=== PATIENT | male | born 1955 | race Caucasian/White ===

== ENCOUNTER 2016-09-04 04:25 | Day surgery (SDC) | payer BC ==
[2016-08-27 11:35] LABS: BASOPHILS 0.3 %; BASOPHILS ABSOLUTE 0.03 10/3/uL (0.0-0.16); EOSINOPHILS 4.1 %; EOSINOPHILS ABSOLUTE 0.35 10/3/uL (0.0-0.53); HEMOGLOBIN 13.1 g/dL (13.6-17.8); IMMATURE GRANULOCYTES 1.4 %; IMMATURE GRANULOCYTES ABSOLUTE 0.12 10/3/uL (0.0-0.11); LYMPHOCYTES 23.7 %; LYMPHOCYTES ABSOLUTE 2.04 10/3/uL (0.67-4.30); MEAN CORPUS HGB CONC 33.9 g/dL (32.0-36.0); MEAN CORPUSCULAR HEMOGLOB 31.9 pg (26.0-34.0); MEAN CORPUSCULAR VOLUME 94.2 fL (80-100); MEAN PLATELET VOLUME 8.3 fL (9.2-13.0); MONOCYTES 4.7 %; NEUTROPHILS 65.8 %; NEUTROPHILS ABSOLUTE 5.66 10/3/uL (2.02-8.40); PLATELET COUNT 334 10/3/uL (150-400); RBC DISTRIBUTION WIDTH 15.1 % (12.0-16.0); RED CELL COUNT 4.11 10/6/uL (4.7-6.1); WHITE BLOOD CELLS 8.6 10/3/uL (4.5-10.5)
[2016-08-27 11:36] LABS: HEMATOCRIT 38.7 % (40.0-51.0); MANUAL DIFF NO %
[2016-08-27 11:53] LABS: ALKALINE PHOSPHATASE 81 U/L (45-117); CALCIUM, SERUM 9.4 MG/DL (8.5-10.4); CHLORIDE, SERUM 103 MMOL/L (96-112); CO2 (CARBON DIOXIDE) 25 MMOL/L (24-34); CREATININE 0.69 MG/DL (0.70-1.30); GFR AFRICAN AMERICAN 120 ML/MIN (>=60); GFR NON AFRICAN AMERICAN 104 ML/MIN (>=60); SGOT(AST) 14 U/L (5-40); SGPT(ALT) 24 U/L (5-65); SODIUM, SERUM 141 MMOL/L (135-148); TOTAL PROTEIN 6.9 G/DL (6.0-8.5)
[2016-08-27 11:54] LABS: ALBUMIN 3.5 G/DL (3.5-5.0); BUN (BLOOD UREA NITROGEN) 15 MG/DL (6-23); GLOBULIN 3.4 G/DL (2.5-4.1); GLUCOSE, SERUM 146 MG/DL (60-99); POTASSIUM, SERUM 4.4 MMOL/L (3.5-5.3); TOTAL BILIRUBIN 1.2 MG/DL (0-1.2)
[2016-08-27 17:13] LABS: DIRECT BILIRUBIN 0.2 MG/DL (0.0-0.4)
--- NOTE | ~2016-09-04 | OP ---
Record Of Operation [facility] [address] [place]. [address] NAME: EILEEN HUMPHRIES JR : 59 STATUS : REG [facility]#: [id number] AGE: 61 ADM/REG DATE : 09/04/16 MR#: [id number] REPORT SERV DATE: 09/04/16 DICTATED BY: SHARAD GARCIA DATE: 09/04/16 REPORT STATUS : Draft TRANSCRIBED BY: MODL DATE: 09/04/16 DATE OF PROCEDURE: 09/04/2016 PREOPERATIVE DIAGNOSIS: Symptomatic cholelithiasis. POSTOPERATIVE DIAGNOSIS: Chronic cholecystitis with cholelithiasis. OPERATION PERFORMED: Laparoscopic cholecystectomy. SURGEON: Sharad Garcia M.D. ANESTHESIA: General. ESTIMATED BLOOD LOSS: Less than 10 mL. IV FLUIDS: Adequate. INDICATION FOR PROCEDURE: Mr. Humphries is a 61-year-old gentleman, who has a recent history of lung cancer treated with chemotherapy and resection. He is brought to the operating room today after a diagnosis of symptomatic cholelithiasis. Full risks and benefits of the procedure were discussed in detail. DESCRIPTION OF OPERATION: After appropriate sedation, the patient was prepped and draped in appropriate sterile fashion. Skin and subcutaneous tissues around the umbilicus were infiltrated with local anesthesia. A vertical incision made at the umbilical skin. He had small umbilical hernia, which was opened up slightly, and a 10-mm trocar was placed in the abdomen. The abdomen was then insufflated to 15 mmHg. We placed a 10-mm subxiphoid and two right lateral 5-mm trocars under visualization after obtaining local anesthesia in the standard fashion. Gallbladder was visualized. There were dense omental adhesions which were taken down. The gallbladder was very thick-walled and full of stones and bile. It was grasped and taken cephalad. We incised the peritoneum on both sides of the gallbladder to help with mobilization. We dissected the attachments down to the cystic duct and the cystic artery. The cystic artery was ligated between the hemoclips. We dissected out posterior to the gallbladder. We were able to get down to the cystic duct. It was very thick-walled. It was ligated between the hemoclips. The gallbladder was taken off the gallbladder fossa using hook cautery, placed in an Endopouch and brought out through the umbilical trocar site. We placed a trocar and visualized the right upper quadrant. There was some oozing from the gallbladder fossa which was controlled using cautery. We placed Surgicel into the gallbladder fossa. This controlled the bleeding nicely. We visualized our clips, which were intact. There was no evidence of bile leak. A 15-Hungarian drain was placed in the gallbladder fossa and brought out laterally through the trocar site. We removed the remaining trocars under direct visualization. There was no evidence of bleeding from the abdominal wall. The abdomen was then desufflated. The fascia at the umbilical trocar site was then closed using 0 Vicryl suture. The skin was closed using interrupted running 4-0 Monocryl suture. Steri-Strips and dressings were then placed. The patient was taken to the recovery room in satisfactory condition. Record Of Operation [facility] [id number] [place]. [address] NAME: EILEEN HUMPHRIES JR : 59 STATUS : REG [facility] PAT#: [id number] AGE: 61 ADM/REG DATE : 09/04/16 MR#: [id number] REPORT SERV DATE: 09/04/16 DICTATED BY: SHARAD GARCIA DATE: 09/04/16 REPORT STATUS : Draft TRANSCRIBED BY: KAMLA DATE: 09/04/16 JOSE/KAMLA Sharad Garcia M.D. / [id number] CC: Mike Richter D.O. Davey B. Daniel, M.D.
[~2016-09-04 04:25] MED LIST: ADVAIR250 INH; AUG875 PO; COMBIVENT RESPIM4 GM INH; FLORASTOR250 MG PO; GLUCPH PO; GLUCXL5 PO; INVOKANA300 MG PO; LOP25 PO; LOPID6 PO; MULTIPLE VIT PO; NICODERM C21 MG/241 TOP; NORCO1 TAB PO; NORV10 PO; P20 PO; PCET PO; PRINZIDE1 TA1 PO; SPIRIVA INH; SPIRIVA RESPIMAT INH; SYMBICORT 160/41 INH INH; VENTOLIN HFA INH; VITC500 PO
[2017-03-25] MEDS ORDERED: NORV25 PO (10:35)
[2017-03-25] MEDS ORDERED: VITC500 PO (10:37)
[2017-03-25] MEDS ORDERED: BIOTIN5 MG PO (10:37)
[2017-03-25] MEDS ORDERED: VITE1000 PO (10:38)
[2017-03-25] MEDS ORDERED: FISH-EPA1000 MG PO (10:38)
[2017-03-28] MEDS ORDERED: PROBIOTIC (16:00)
[2017-03-28] MEDS ORDERED: STERAPRED DS10 MG (16:01)
[2017-03-28] MEDS ORDERED: LEVAQUIN750 MG PO (16:01)
== END 2016-09-04 12:36 | disposition home or self-care (01) ==
LOC: SDC 04:25
PROVIDERS: Specialist
PROC: 0FT44ZZ Resection of Gallbladder, Percutaneous Endoscopic Approach (ICD-10-PCS; principal; 2016-09-04 05:45)
DX: K81.2 Acute cholecystitis with chronic cholecystitis (principal); I10 Essential (primary) hypertension; J44.9 Chronic obstructive pulmonary disease, unspecified; J45.909 Unspecified asthma, uncomplicated; E11.9 Type 2 diabetes mellitus without complications; F17.200 Nicotine dependence, unspecified, uncomplicated
CPT/HCPCS: 71020; 80053; 82248; 82962; 85025; 88304; 93005; A9270-GY; J0690; J1170; J2250; J2405; J2710; J3010